=== PATIENT | male | born 1955 | race Caucasian/White ===

== ENCOUNTER 2016-05-25 08:00 | Outpatient (CLI) | payer MEDICAID ==
[~2016-05-25] VITALS: Ht 167.7 cm; Wt 63.6 kg
[2016-05-25] MEDS ORDERED: WELLBUTRIN XL150 MG PO (08:20)
[2016-05-25 08:23] VITALS: BP 141/104; PULSE 95; TEMP 97.4
[2016-05-25] MEDS ORDERED: TOPROL XL 50MG50 MG PO (10:43)
[2016-05-25] MEDS ORDERED: CEPHALEXIN500 M1 PO (10:44)
== END 2016-05-25 11:46 | disposition home or self-care (01) ==
LOC: COL.RAD 08:00
DX: R42 Dizziness and giddiness (principal)
CPT/HCPCS: C1764